=== PATIENT | male | born 1945 | race Caucasian/White ===

== ENCOUNTER 2018-04-07 05:33 | Day surgery (SDC) | payer OTHER ==
[~2018-04-07] VITALS: Ht 182.9 cm; Wt 82.1 kg
--- NOTE | ~2018-04-07 | O ---
[facility] [place] [address] OPERATIVE REPORT Name: CARMEN CASON Room #: DEP [facility].#: [id number] Admission: 04/07/18 Attend Phys: Matias Smith MD Discharge: 04/07/18 Date of : 41 Report #: [id number] THIS REPORT FOR: //name// CC: THERESE Smith DATE OF SERVICE: 04/07/2018 METEOROLOGY INSTRUCTOR: None. PREOPERATIVE DIAGNOSIS: Unilateral right upper lid ptosis. POSTOPERATIVE DIAGNOSIS: Unilateral right upper lid ptosis. OPERATION PERFORMED: Unilateral right upper lid ptosis repair. ANESTHESIA: Local anesthesia with IV sedation. COMPLICATIONS: None. INDICATIONS FOR SURGERY: This patient has right upper lid ptosis with superior visual field loss. Visual field testing demonstrates dense superior visual defects. Retesting with the upper lid elevated shows an improvement in visual field loss of over 30% and in excess of 12 degrees. The current procedure is undertaken in order to improve the patient's visual function. Informed consent was obtained to include but not limited to the potential risks for bleeding, scarring, infection, loss of vision, failure to improve the problem, need for further surgery and need for adjustment of lid height. DESCRIPTION OF PROCEDURE: The patient was taken to the operating room, where a right upper lid crease was drawn with a skin marking pen. The incision was then made with Cholo scissors and dissected down to the orbital septum. Hemostasis was achieved with a monopolar cautery as it was throughout the case. The orbital septum was then entered and the preaponeurotic fat identified. The levator aponeurosis was then disinserted from the anterior surface of the tarsal plate and dissected free in the avascular Tamayo's muscle plane. The aponeurosis was then advanced onto the anterior surface of the tarsal plate and reattached with mattress double-arm 6-0 Novafil sutures, adjusting for height and contour. The redundant aponeurosis was then amputated. The upper lid crease was then reformed with interrupted 6-0 chromic sutures. The skin was closed with interrupted 6-0 plain gut suture. The wound was then cleaned and dressed with ophthalmic antibiotic ointment. [address] [address] OPERATIVE REPORT Name: CARMEN CASON Room #: DEP [facility].#: [id number] Admission: 04/07/18 Attend Phys: Matias Smith MD Discharge: 04/07/18 Date of : 41 Report #: [id number] The patient was then transported to the recovery area, having tolerated the procedure well with no anesthesia or operative complications being noted. By: [id number] Matias Smith MD /nt
[~2018-04-07 05:33] MED LIST: ALLOPURINOL 30300 M1 PO; B COMPLEX1 EACH PO; COUMADIN 5 MG TA5 M1 PO; FISH OIL 1,001000 M2 PO; GLUCOSAMINE CH1 EAC1 PO; MELATONIN5 M1 PO; MULTI VITAMIN1 EACH PO; PRESERVISION T1 EACH PO; RESVERATROL 101 EACH PO; VITAMIN D32000 UNIT PO; ZINC50 M1 PO
[2018-04-07 07:00] VITALS: BP 141/85
[2018-04-07 07:28] LABS: INR 1.1; PROTIME 10.8 Seconds (9.3-11.4)
== END 2018-04-07 09:00 | disposition home or self-care (01) ==
LOC: OR 05:33 → TBA 05:34 → OR 09:00
PROVIDERS: Ophthalmology
DX: H02.401 Unspecified ptosis of right eyelid (principal); H53.451 Other localized visual field defect, right eye; Z79.01 Long term (current) use of anticoagulants; Z98.890 Other specified postprocedural states; Z79.899 Other long term (current) drug therapy
CPT/HCPCS: 50010; 50101; 50386; 50398; 51636; 56528; 56531; 70005